=== PATIENT | female | born 1955 | race Two or more races ===

== ENCOUNTER 2020-05-01 14:54 | Emergency (ER) | payer MEDICAID, MEDICARE ==
[~2020-05-01] VITALS: Ht 149.9 cm; Wt 71.7 kg
[2020-05-01 15:02] VITALS: BP 133/68
[2020-05-01] MEDS ORDERED: ACETAMINOPHEN 500 MG TAB PO ONE (16:00)
== END 2020-05-01 16:10 | disposition home or self-care (01) ==
LOC: ER 14:54
DX: R51.9 Headache, unspecified (principal); F17.210 Nicotine dependence, cigarettes, uncomplicated
CPT/HCPCS: 70450

== ENCOUNTER 2021-06-10 12:41 | Inpatient (IN) | payer MEDICARE, MEDICAID ==
[~2021-06-10] VITALS: Ht 149.9 cm; Wt 72.2 kg
[2021-06-10 14:09] LABS: Basophils # (auto) 0.1 10 ^3/uL (0-0.2); Basophils % (auto) 0.7 % (0.0-2.0); Eosinophils # (auto) 0.1 10 ^3/uL (0-0.8); Eosinophils % (auto) 1.1 % (0.0-7.0); Hematocrit 43.6 % (36.0-46.0); Hemoglobin 14.4 g/dL (12.2-16.2); Lymphocytes # (auto) 1.8 10 ^3/uL (0.4-5.4); Lymphocytes % (auto) 19.5 % (10.0-50.0); Mean Corpuscular Volume 93.8 fL (80.0-100.0); Monocytes # (auto) 0.8 10 ^3/uL (0-1.3); Neutrophils # (auto) 6.6 10 ^3/uL (1.6-8.6); Neutrophils % (auto) 69.7 % (37.0-80.0); Nucleated Red Blood Cells % 0.1 %; Red Blood Cells 4.65 10^6/uL (4.0-5.20); Red Cell Distribution Width 14.7 % (11.8-14.3); White Blood Cell 9.4 10^3/uL (4.4-10.8)
[2021-06-10 14:25] LABS: Albumin 3.2 g/dL (3.4-5.0); BUN/Creatinine Ratio 23.9; Calcium 9.2 mg/dL (8.5-10.1)
[2021-06-10 14:34] LABS: Bilirubin, Total 0.8 mg/dL (0.2-1.0); Total Protein 7.5 g/dL (6.4-8.2)
[2021-06-10] MEDS ORDERED: AMIODARONE HCL 150 MG in D5W 5% 100 ML IV ONE (15:30)
[2021-06-10] MEDS ORDERED: AMIODARONE 450mg/250ml AE 250 ML IV SCH ×2 (15:45→21:45)
[2021-06-10] MEDS ORDERED: SODIUM CHLORIDE 0.9% 1,000 ML IV ONE (17:30)
[2021-06-10] MEDS ORDERED: MORPHINE SULFATE INJECTION 2 MG/ML SYRG IV PRN ×3 (17:45→19:30)
[2021-06-10] MEDS ORDERED: NITROGLYCERIN 0.4 MG SL TAB SL PRN ×2 (17:45→19:30)
[2021-06-10] MEDS ORDERED: ENAL10TA13 PO (18:04)
[2021-06-10] MEDS ORDERED: RABE1TAB4 PO (18:04)
[2021-06-10] MEDS ORDERED: FER325T PO (18:04)
[2021-06-10] MEDS ORDERED: FLUO40CA PO (18:04)
[2021-06-10] MEDS ORDERED: DOCU100C10 PO (18:04)
[2021-06-10] MEDS ORDERED: GABA-339 PO (18:04)
[2021-06-10] MEDS ORDERED: LURA40TA PO (18:05)
[2021-06-10] MEDS ORDERED: METF-370 PO (18:05)
[2021-06-10] MEDS ORDERED: BUSP10TA90 PO (18:05)
[2021-06-10] MEDS ORDERED: SIMV80TA73 PO (18:06)
[2021-06-10] MEDS ORDERED: TRAM50TA2 PO (18:08)
[2021-06-10 18:35] LABS: INR 1.1 (0.9-1.15); Partial Thromboplastin Time 26.2 sec (23.6-33.0)
[2021-06-10] MEDS ORDERED: ALUM & MAG HYDROX-SIMETH LIQ(MAALOX) 30 ML PO PRN (19:30)
[2021-06-10] MEDS ORDERED: ACETAMINOPHEN 325 MG TAB PO PRN (19:30)
[2021-06-10] MEDS ORDERED: ASPirin 81 mg TAB PO ONE (19:30)
[2021-06-10] MEDS ORDERED: DEXTROSE (50%) 50ML SYRG IV PRN (19:30)
[2021-06-10] MEDS ORDERED: FUROSEMIDE 40 MG/4 ML VIAL IV ONE (19:30)
[2021-06-10] MEDS ORDERED: METOPROLOL SUCCINATE XL 50 MG TAB PO ONE (19:30)
[2021-06-10] MEDS ORDERED: ONDANSETRON HCL 4 MG/2 ML VIAL IV PRN (19:30)
[2021-06-10] MEDS ORDERED: ATORVASTATIN 20 MG TAB PO ONE (19:30)
[2021-06-10] MEDS ORDERED: HYDROcodone-ACET 5/325MG TAB PO PRN (19:30)
[2021-06-10] MEDS ORDERED: ALBUMIN 25% 100 ML IV ONE (20:30)
[2021-06-10] MEDS ORDERED: DIGOXIN (250MCG/ML) 2 ML AMPULE IV ONE (20:30)
[2021-06-10] MEDS ORDERED: ENOXAPARIN SOD 80 MG/0.8ML SYRINGE SC ONE (21:00)
[2021-06-10] MEDS: ACCU-CHEK COMFORT CURVE STRIP VI SCH (21:55)
[2021-06-10] MEDS: InsuLIN REG 1unit/0.01ml Soln (100units/ml) SC SCH (21:55)
[2021-06-10 21:56] VITALS: BP 96/69
[2021-06-10] MEDS ORDERED: IPRATROPIUM BROM 0.5 MG/2.5ML INH SOL NEB SCH (22:00)
[2021-06-10 22:20] VITALS: BP 120/70
[2021-06-10 22:26] VITALS: BP 96/69
[2021-06-10] MEDS: busPIRone HCL 10 MG TAB PO SCH (22:55)
[2021-06-11] VITALS (7 sets, daily range): BP systolic 94–117; BP diastolic 62–68
[2021-06-11] MEDS: DIGOXIN (250MCG/ML) 2 ML AMPULE IV SCH ×3 (02:21→14:41)
[2021-06-11] MEDS: FUROSEMIDE 20 MG/2 ML VIAL IV SCH ×2 (06:00→17:40)
[2021-06-11] MEDS: ACCU-CHEK COMFORT CURVE STRIP VI SCH ×4 (06:03→21:54)
[2021-06-11] MEDS: InsuLIN REG 1unit/0.01ml Soln (100units/ml) SC SCH ×4 (06:04→21:54)
[2021-06-11 06:06] LABS: Basophils # (auto) 0 10 ^3/uL (0-0.2); Basophils % (auto) 0.5 % (0.0-2.0); Eosinophils # (auto) 0.1 10 ^3/uL (0-0.8); Eosinophils % (auto) 0.7 % (0.0-7.0); Hematocrit 43.9 % (36.0-46.0); Hemoglobin 14.3 g/dL (12.2-16.2); Lymphocytes # (auto) 1.4 10 ^3/uL (0.4-5.4); Mean Corpuscular Hemoglobin 31.1 pg (28.0-32.0); Mean Corpuscular Hgb Conc. 32.6 g/dL (32.0-36.0); Mean Corpuscular Volume 95.4 fL (80.0-100.0); Monocytes # (auto) 0.9 10 ^3/uL (0-1.3); Monocytes % (auto) 11.3 % (0.0-12.0); Neutrophils # (auto) 5.6 10 ^3/uL (1.6-8.6); Neutrophils % (auto) 70.5 % (37.0-80.0); Red Cell Distribution Width 14.7 % (11.8-14.3)
[2021-06-11 06:24] LABS: INR 1.24 (0.9-1.15); Partial Thromboplastin Time 27.9 sec (23.6-33.0)
[2021-06-11 06:32] LABS: Albumin 3.1 g/dL (3.4-5.0); Calcium 8.3 mg/dL (8.5-10.1); Magnesium 2.6 mg/dL (1.6-2.6); Potassium 4.5 mmol/L (3.5-5.1)
[2021-06-11 06:41] LABS: BUN/Creatinine Ratio 24.1; Bilirubin, Total 1.3 mg/dL (0.2-1.0); Phosphorus 4.4 mg/dL (2.5-4.90); Total Protein 6.6 g/dL (6.4-8.2); Uric Acid 6.7 mg/dL (2.6-6.0)
[2021-06-11] MEDS: BENAZEPRIL HCL 10 MG TAB PO SCH (09:36)
[2021-06-11] MEDS: busPIRone HCL 10 MG TAB PO SCH ×2 (09:37→21:50)
[2021-06-11] MEDS: FLUoxetine HCL 20 MG CAP PO SCH (09:37)
[2021-06-11] MEDS: GABAPENTIN 300 MG CAP PO SCH (09:37)
[2021-06-11] MEDS: ENOXAPARIN SOD 100 MG/1 ML SYRINGE SC SCH ×2 (09:38→21:49)
[2021-06-11] MEDS ORDERED: PANTOPRAZOLE 40 MG TAB PO ONE (15:00)
[2021-06-11] MEDS: ASPirin 81 mg TAB PO SCH (21:49)
[2021-06-11] MEDS: ATORVASTATIN 20 MG TAB PO SCH (21:49)
[2021-06-11] MEDS: METOPROLOL SUCCINATE XL 50 MG TAB PO SCH (21:50)
[2021-06-12 04:38] LABS: Urine Bacteria FEW /hpf (None Seen); Urine Blood TRACE /uL (Negative); Urine Specific Gravity 1.009 (1.001-1.035); Urine WBC 3 /hpf (0 - 5)
[2021-06-12 04:45] LABS: Amphetamine Screen, Urine NEGATIVE (NEGATIVE); Barbiturate Scree,Urine NEGATIVE (NEGATIVE); Benzodiazephine Screen, Urine NEGATIVE (NEGATIVE); Cannabinoid Screen, Urine NEGATIVE (NEGATIVE); Cocaine Screen, Urine NEGATIVE (NEGATIVE); Opiate Scree,Urine NEGATIVE (NEGATIVE); Phencyclidine Screen, Urine NEGATIVE (NEGATIVE)
[2021-06-12 05:00] VITALS: BP 115/59
[2021-06-12 05:37] LABS: Basophils # (auto) 0 10 ^3/uL (0-0.2); Basophils % (auto) 0.4 % (0.0-2.0); Eosinophils # (auto) 0.1 10 ^3/uL (0-0.8); Eosinophils % (auto) 1.4 % (0.0-7.0); Hematocrit 41.2 % (36.0-46.0); Hemoglobin 13.9 g/dL (12.2-16.2); Lymphocytes # (auto) 1.9 10 ^3/uL (0.4-5.4); Lymphocytes % (auto) 21.7 % (10.0-50.0); Mean Corpuscular Hemoglobin 31.5 pg (28.0-32.0); Mean Corpuscular Hgb Conc. 33.8 g/dL (32.0-36.0); Mean Corpuscular Volume 93.3 fL (80.0-100.0); Monocytes # (auto) 0.8 10 ^3/uL (0-1.3); Monocytes % (auto) 9.8 % (0.0-12.0); Neutrophils # (auto) 5.7 10 ^3/uL (1.6-8.6); Neutrophils % (auto) 66.7 % (37.0-80.0); Nucleated Red Blood Cells % 0.1 %; Red Blood Cells 4.42 10^6/uL (4.0-5.20); Red Cell Distribution Width 14.1 % (11.8-14.3); White Blood Cell 8.6 10^3/uL (4.4-10.8)
[2021-06-12 05:59] LABS: Calcium 8.8 mg/dL (8.5-10.1); Potassium 4.1 mmol/L (3.5-5.1)
[2021-06-12] MEDS: FUROSEMIDE 20 MG/2 ML VIAL IV SCH ×2 (05:59→18:00)
[2021-06-12 06:02] LABS: BUN/Creatinine Ratio 30.3
[2021-06-12] MEDS: ACCU-CHEK COMFORT CURVE STRIP VI SCH ×4 (06:08→21:39)
[2021-06-12] MEDS: InsuLIN REG 1unit/0.01ml Soln (100units/ml) SC SCH ×4 (06:08→21:38)
[2021-06-12 08:00] VITALS: BP 118/76
[2021-06-12 09:00] VITALS: BP 118/76
[2021-06-12] MEDS: PANTOPRAZOLE 40 MG TAB PO SCH (10:00)
[2021-06-12] MEDS: ENOXAPARIN SOD 100 MG/1 ML SYRINGE SC SCH ×2 (10:00→22:00)
[2021-06-12] MEDS: GABAPENTIN 300 MG CAP PO SCH (10:03)
[2021-06-12] MEDS: BENAZEPRIL HCL 10 MG TAB PO SCH (10:04)
[2021-06-12] MEDS: FLUoxetine HCL 20 MG CAP PO SCH (10:04)
[2021-06-12] MEDS: busPIRone HCL 10 MG TAB PO SCH ×2 (10:04→21:30)
[2021-06-12 13:00] VITALS: BP 126/71
[2021-06-12 17:28] VITALS: BP 106/67
[2021-06-12 21:30] VITALS: BP 105/64
[2021-06-12] MEDS: ATORVASTATIN 20 MG TAB PO SCH (21:30)
[2021-06-12] MEDS: METOPROLOL SUCCINATE XL 50 MG TAB PO SCH (21:31)
[2021-06-12] MEDS: ASPirin 81 mg TAB PO SCH (22:00)
[2021-06-13] VITALS (7 sets, daily range): BP systolic 90–116; BP diastolic 62–84
[2021-06-13] MEDS: FUROSEMIDE 20 MG/2 ML VIAL IV SCH ×2 (05:19→17:49)
[2021-06-13] MEDS: ACCU-CHEK COMFORT CURVE STRIP VI SCH ×4 (06:36→22:43)
[2021-06-13] MEDS: InsuLIN REG 1unit/0.01ml Soln (100units/ml) SC SCH ×4 (06:36→22:48)
[2021-06-13 07:01] LABS: Basophils # (auto) 0.1 10 ^3/uL (0-0.2); Basophils % (auto) 0.9 % (0.0-2.0); Eosinophils # (auto) 0.2 10 ^3/uL (0-0.8); Hematocrit 41.8 % (36.0-46.0); Hemoglobin 14.3 g/dL (12.2-16.2); Lymphocytes # (auto) 1.6 10 ^3/uL (0.4-5.4); Lymphocytes % (auto) 19.1 % (10.0-50.0); Mean Corpuscular Hgb Conc. 34.2 g/dL (32.0-36.0); Mean Corpuscular Volume 93.6 fL (80.0-100.0); Monocytes # (auto) 0.8 10 ^3/uL (0-1.3); Monocytes % (auto) 9.8 % (0.0-12.0); Neutrophils # (auto) 5.7 10 ^3/uL (1.6-8.6); Neutrophils % (auto) 68.2 % (37.0-80.0); Nucleated Red Blood Cells % 0.1 %; Red Blood Cells 4.46 10^6/uL (4.0-5.20); Red Cell Distribution Width 14.1 % (11.8-14.3); White Blood Cell 8.3 10^3/uL (4.4-10.8)
[2021-06-13 07:25] LABS: BUN/Creatinine Ratio 37.9; Calcium 8.9 mg/dL (8.5-10.1); Potassium 4.2 mmol/L (3.5-5.1)
[2021-06-13] MEDS: PANTOPRAZOLE 40 MG TAB PO SCH (10:00)
[2021-06-13] MEDS: busPIRone HCL 10 MG TAB PO SCH ×2 (10:00→22:44)
[2021-06-13] MEDS: FLUoxetine HCL 20 MG CAP PO SCH (10:00)
[2021-06-13] MEDS: ENOXAPARIN SOD 100 MG/1 ML SYRINGE SC SCH ×2 (10:00→22:43)
[2021-06-13] MEDS: BENAZEPRIL HCL 10 MG TAB PO SCH (10:00)
[2021-06-13] MEDS: GABAPENTIN 300 MG CAP PO SCH (10:00)
[2021-06-13] MEDS ORDERED: IOHEXOL 350 MG/ML 100ML IJ ONE ×2 (12:12→13:20)
[2021-06-13] MEDS ORDERED: LIDOCAINE 2%HCL (LOCAL ANESTH.) INJ 20ML MDV ONE ×2 (12:12→13:20)
[2021-06-13] MEDS ORDERED: ANGIOMAX 250 MG VIAL IV ONE (13:19)
[2021-06-13] MEDS ORDERED: fentaNYL CITRATE 100 MCG/2 ML VL ONE (13:20)
[2021-06-13] MEDS ORDERED: MIDAZOLAM HCL 2MG/2ML 2ml VIAL (1mg/ml) ONE (13:20)
[2021-06-13] MEDS ORDERED: SODIUM CHL 0.9% 50 ML ONE (13:20)
[2021-06-13] MEDS: METOPROLOL SUCCINATE XL 50 MG TAB PO SCH (22:00)
[2021-06-13] MEDS: ATORVASTATIN 20 MG TAB PO SCH (22:44)
[2021-06-13] MEDS: SODIUM CHLOR 0.9% PF (SALINE LOCK) 10ML VIAL/SYR IV SCH (22:45)
[2021-06-13] MEDS: ASPirin 81 mg TAB PO SCH (22:45)
[2021-06-14 05:00] VITALS: BP 98/56
[2021-06-14 05:26] LABS: Basophils # (auto) 0.1 10 ^3/uL (0-0.2); Basophils % (auto) 0.6 % (0.0-2.0); Eosinophils # (auto) 0.1 10 ^3/uL (0-0.8); Eosinophils % (auto) 1.1 % (0.0-7.0); Hematocrit 41.8 % (36.0-46.0); Hemoglobin 14.4 g/dL (12.2-16.2); Lymphocytes # (auto) 1.4 10 ^3/uL (0.4-5.4); Lymphocytes % (auto) 14.6 % (10.0-50.0); Mean Corpuscular Hemoglobin 32.2 pg (28.0-32.0); Mean Corpuscular Hgb Conc. 34.5 g/dL (32.0-36.0); Mean Corpuscular Volume 93.3 fL (80.0-100.0); Monocytes # (auto) 1.1 10 ^3/uL (0-1.3); Monocytes % (auto) 11.1 % (0.0-12.0); Neutrophils % (auto) 72.6 % (37.0-80.0); Red Blood Cells 4.47 10^6/uL (4.0-5.20); Red Cell Distribution Width 14.1 % (11.8-14.3); White Blood Cell 9.7 10^3/uL (4.4-10.8)
[2021-06-14 05:51] LABS: Potassium 3.9 mmol/L (3.5-5.1)
[2021-06-14 05:58] LABS: BUN/Creatinine Ratio 49.1; Calcium 8.5 mg/dL (8.5-10.1)
[2021-06-14] MEDS: InsuLIN REG 1unit/0.01ml Soln (100units/ml) SC SCH ×4 (07:00→22:00)
[2021-06-14] MEDS: ACCU-CHEK COMFORT CURVE STRIP VI SCH ×4 (07:05→22:23)
[2021-06-14] MEDS: SODIUM CHLOR 0.9% PF (SALINE LOCK) 10ML VIAL/SYR IV SCH ×3 (07:05→22:21)
[2021-06-14] MEDS: FUROSEMIDE 20 MG/2 ML VIAL IV SCH ×2 (07:06→17:30)
[2021-06-14 08:40] VITALS: BP 113/73
[2021-06-14] MEDS: busPIRone HCL 10 MG TAB PO SCH ×2 (10:16→22:22)
[2021-06-14] MEDS: GABAPENTIN 300 MG CAP PO SCH (10:16)
[2021-06-14] MEDS: BENAZEPRIL HCL 10 MG TAB PO SCH (10:16)
[2021-06-14] MEDS: PANTOPRAZOLE 40 MG TAB PO SCH (10:16)
[2021-06-14] MEDS: FLUoxetine HCL 20 MG CAP PO SCH (10:17)
[2021-06-14] MEDS: ENOXAPARIN SOD 100 MG/1 ML SYRINGE SC SCH ×2 (10:18→22:23)
[2021-06-14] MEDS: DOCUSATE SOD 100 MG CAP PO PRN ×2 (10:48→22:25)
[2021-06-14 13:00] VITALS: BP 97/65
[2021-06-14 17:00] VITALS: BP 111/70
[2021-06-14 21:53] VITALS: BP 115/60
[2021-06-14] MEDS: ASPirin 81 mg TAB PO SCH (22:22)
[2021-06-14] MEDS: METOPROLOL SUCCINATE XL 50 MG TAB PO SCH (22:23)
[2021-06-14] MEDS: ATORVASTATIN 20 MG TAB PO SCH (22:27)
[2021-06-15 05:06] VITALS: BP 120/79
[2021-06-15] MEDS: SODIUM CHLOR 0.9% PF (SALINE LOCK) 10ML VIAL/SYR IV SCH ×3 (06:17→22:21)
[2021-06-15] MEDS: FUROSEMIDE 20 MG/2 ML VIAL IV SCH ×2 (06:17→17:48)
[2021-06-15] MEDS: ACCU-CHEK COMFORT CURVE STRIP VI SCH ×4 (06:21→22:29)
[2021-06-15] MEDS: InsuLIN REG 1unit/0.01ml Soln (100units/ml) SC SCH ×4 (06:21→22:00)
[2021-06-15 09:00] VITALS: BP 99/52
[2021-06-15] MEDS: busPIRone HCL 10 MG TAB PO SCH ×2 (09:59→22:21)
[2021-06-15] MEDS: BENAZEPRIL HCL 10 MG TAB PO SCH (10:00)
[2021-06-15] MEDS: GABAPENTIN 300 MG CAP PO SCH (10:00)
[2021-06-15] MEDS: PANTOPRAZOLE 40 MG TAB PO SCH (10:00)
[2021-06-15] MEDS: ENOXAPARIN SOD 100 MG/1 ML SYRINGE SC SCH ×2 (10:01→22:19)
[2021-06-15] MEDS: FLUoxetine HCL 20 MG CAP PO SCH (10:01)
[2021-06-15 12:30] VITALS: BP 107/65
[2021-06-15 17:00] VITALS: BP 109/59
[2021-06-15 22:00] VITALS: BP 98/54
[2021-06-15] MEDS: ATORVASTATIN 20 MG TAB PO SCH (22:19)
[2021-06-15] MEDS: METOPROLOL SUCCINATE XL 50 MG TAB PO SCH (22:21)
[2021-06-15] MEDS: ASPirin 81 mg TAB PO SCH (22:21)
[2021-06-16 05:00] VITALS: BP 115/65
[2021-06-16] MEDS: InsuLIN REG 1unit/0.01ml Soln (100units/ml) SC SCH ×4 (07:00→21:17)
[2021-06-16] MEDS: ACCU-CHEK COMFORT CURVE STRIP VI SCH ×3 (07:07→21:15)
[2021-06-16] MEDS: SODIUM CHLOR 0.9% PF (SALINE LOCK) 10ML VIAL/SYR IV SCH ×3 (07:19→21:16)
[2021-06-16] MEDS: FUROSEMIDE 20 MG/2 ML VIAL IV SCH (07:19)
[2021-06-16 09:00] VITALS: BP 93/59
[2021-06-16] MEDS: BENAZEPRIL HCL 10 MG TAB PO SCH (10:31)
[2021-06-16] MEDS: GABAPENTIN 300 MG CAP PO SCH (10:31)
[2021-06-16] MEDS: busPIRone HCL 10 MG TAB PO SCH ×2 (10:31→21:16)
[2021-06-16] MEDS: FLUoxetine HCL 20 MG CAP PO SCH (10:32)
[2021-06-16] MEDS: PANTOPRAZOLE 40 MG TAB PO SCH (10:32)
[2021-06-16] MEDS: ENOXAPARIN SOD 100 MG/1 ML SYRINGE SC SCH ×2 (10:32→21:18)
[2021-06-16 13:00] VITALS: BP 114/66
[2021-06-16 17:00] VITALS: BP 89/49
[2021-06-16] MEDS: ASPirin 81 mg TAB PO SCH (21:16)
[2021-06-16] MEDS: ATORVASTATIN 20 MG TAB PO SCH (21:16)
[2021-06-16] MEDS: METOPROLOL SUCCINATE XL 50 MG TAB PO SCH (21:18)
[2021-06-16 22:00] VITALS: BP 100/62
== END 2021-06-16 23:57 | disposition short-term general hospital (02) | DRG 201 ==
LOC: ER 12:41 → TELE 17:32 → TELE-WESTW 20:55
PROVIDERS: ADMIT Hospitalist; ATTEND Internal Medicine Pulmonary Disease
DX: I48.91 Unspecified atrial fibrillation (principal); I50.43 Acute on chronic combined systolic (congestive) and diastolic (congestive) heart failure; D68.59 Other primary thrombophilia; E11.21 Type 2 diabetes mellitus with diabetic nephropathy; E88.09 Other disorders of plasma-protein metabolism, not elsewhere classified; I11.0 Hypertensive heart disease with heart failure; E11.40 Type 2 diabetes mellitus with diabetic neuropathy, unspecified; I50.82 Biventricular heart failure; E66.01 Morbid (severe) obesity due to excess calories; F32.9 Major depressive disorder, single episode, unspecified; K21.9 Gastro-esophageal reflux disease without esophagitis; K29.70 Gastritis, unspecified, without bleeding; F41.9 Anxiety disorder, unspecified; J44.9 Chronic obstructive pulmonary disease, unspecified; Z20.822 Contact with and (suspected) exposure to COVID-19; M19.90 Unspecified osteoarthritis, unspecified site; E78.5 Hyperlipidemia, unspecified; F17.210 Nicotine dependence, cigarettes, uncomplicated; F20.9 Schizophrenia, unspecified; Z79.899 Other long term (current) drug therapy; Z91.19 Patient's noncompliance with other medical treatment and regimen; Z68.33 Body mass index [BMI] 33.0-33.9, adult; Z88.0 Allergy status to penicillin
CPT/HCPCS: 36415; 71045; 80048; 80053; 80307; 81001; 82962; 83036; 83735; 83880; 84100; 84443; 84484; 84550; 85025; 85379; 85610; 85730; 86850; 86900; 86901; 87040; 87086; 87426; 93005; 93306; 96361; 96365; 96366; 99152; 99153; 99291; G0378; J2250; J2405; J7060